=== PATIENT | female | born 1975 | race Caucasian/White ===

== ENCOUNTER → 2016-11-10 | Outpatient (CLI) | payer BC ==
[~2016-11-10] MED LIST: AUGMENTIN PO; BCPILLS PO; FLUT0.15 INTNAS; IRON PO; LEVO125T5 PO; MTR600X PO; NORE5TAB5 PO; OLOP1DRO OPB; OXYC-57 PO
== END | disposition home or self-care (01) ==
LOC: C.PAPS 14:13
PROVIDERS: ATTEND Obstetrics & Gynecology
DX: Z01.411 Encounter for gynecological examination (general) (routine) with abnormal findings (principal); R87.610 Atypical squamous cells of undetermined significance on cytologic smear of cervix (ASC-US)

== ENCOUNTER → 2017-06-18 | Outpatient (CLI) | payer BC ==
[~2017-06-18] MED LIST changes: -MTR600X PO; -OXYC-57 PO
== END | disposition home or self-care (01) ==
LOC: C.LAB1850 13:25
PROVIDERS: ATTEND Obstetrics & Gynecology
DX: N93.9 Abnormal uterine and vaginal bleeding, unspecified (principal)

== ENCOUNTER 2017-06-25 07:55 | Observation (INO) | payer BC ==
--- NOTE | 2017-06-22 08:50 | PAT Medication Instructions ---
Service Date Jun 22, 2017. Current Home Medication List Control Pills ( Control Pills), 1 TAB PO QPM Fluticasone Propionate (Nasal) (Flonase Allergy Relief), 2 SPRAYS INTNAS PRN Levothyroxine Sodium (Levothyroxine Sodium), 1 TAB PO QAM Norethindrone (Aygestin), 5 MG PO QPM Olopatadine HCl (Pazeo), 1 DROP OPB QAM [Augmentin], 1 TAB PO BID [Iron], 1 TAB PO QPM Medication Instructions For Your Scheduled Surgery - Hold the following medications 2 weeks prior to surgery: Control Pills ( Control Pills), 1 TAB PO QPM Norethindrone (Aygestin), 5 MG PO QPM - Continue as directed: [Augmentin], 1 TAB PO BID - Take the following medications the morning of surgery with a sip of water: Fluticasone Propionate (Nasal) (Flonase Allergy Relief), 2 SPRAYS INTNAS PRN ( if needed) Levothyroxine Sodium (Levothyroxine Sodium), 1 TAB PO QAM Olopatadine HCl (Pazeo), 1 DROP OPB QAM - Take the following medications as scheduled the night before surgery: Fluticasone Propionate (Nasal) (Flonase Allergy Relief), 2 SPRAYS INTNAS PRN ( if needed) [Iron], 1 TAB PO QPM If you have any questions please call us at [phone] or [phone] or [phone]
[2017-06-22 09:35] VITALS: BMI 22.0
[2017-06-22 09:58] LABS: BASO % 0.5 %; BASO ABS # 0.04 K/uL (0-0.2); COMPLETE YES; EOS % 2.6 %; IG% 0.3 %; LYMPH % 27.4 %; MEAN CELL VOLUME 95.6 fL (80-100); MEAN CORPUSCULAR HEMOGLOBIN 31.9 pg (25-34); MEAN CORPUSCULAR HGB CONC 33.3 g/dl (32-36); MEAN PLATELET VOLUME 9.2 fL (7.4-10.4); MONO % 8.4 %; NEUT % 60.8 %; PLATELET COUNT 324 K/uL (130-400); RED BLOOD COUNT 4.08 M/uL (4.2-5.4)
[2017-06-22 10:06] LABS: BUN/CREATININE RATIO 15.2 (10-20); CALCIUM 8.9 mg/dl (8.5-10.1); CREATININE 0.64 mg/dl (0.60-1.20); POTASSIUM 4.2 mmol/L (3.5-5.1)
[~2017-06-25] VITALS: Ht 167.6 cm; Wt 63.4 kg
[2017-06-25] VITALS (8 sets, daily range): BP systolic 105–121; BP diastolic 64–76; PULSE 64–77; TEMP 36.3–36.9; O2SAT 97–100; Ht 167.6 cm; Wt 63.4 kg
[~2017-06-25 07:55] MED LIST changes: +CEFAZOLIN 2000MG IV PUSH 10 ML IV SCH; +LACTATED RINGER'S 1000ML 1,000 ML IV SCH
[2017-06-25] MEDS ORDERED: EpHEDrine SULFATE INJ 50 MG/ML AMP IV PRN (08:45)
[2017-06-25] MEDS ORDERED: HYDROmorphone INJ 1 MG/ML SYR IV PRN (08:45)
[2017-06-25] MEDS ORDERED: FENTANYL CITRATE INJ 50 MCG/1 ML 2 ML VIAL IV PRN (08:45)
[2017-06-25] MEDS ORDERED: ATROPINE SULFATE 0.1 MG/ML 5ML SYR IV PRN (08:45)
[2017-06-25] MEDS ORDERED: ONDANSETRON INJ 2 MG/ML 2 ML VIAL IV PRN ×2 (08:45→12:45)
--- NOTE | 2017-06-25 09:48 | History & Physical Bridge Note ---
H&P Re-Evaluation Bridge Note: I have examined the patient, reviewed the History & Physical and in the interval since the performance of the History & Physical I have noted the following changes of clinical significance: No changes noted
[2017-06-25] MEDS ORDERED: BUPIVACAINE 0.5 % 5 MG/1 ML MPF 30ML VIAL ONE (09:57)
[2017-06-25] MEDS ORDERED: METHYLENE BLUE 0.5% 10 ML VIAL ONE (09:57)
[2017-06-25] MEDS ORDERED: DEXAMETHASONE SOD INJ 4 MG/ML VIAL ONE (10:02)
[2017-06-25] MEDS ORDERED: MIDAZOLAM HCL 1 MG/ML 2ML VIAL ONE (10:02)
[2017-06-25] MEDS ORDERED: PROPOFOL IV EMULSION 10 MG/ML 20 ML VIAL IV ONE (10:02)
[2017-06-25] MEDS ORDERED: SODIUM CHLORIDE 0.9% INJ 10 ML VIAL ONE (10:02)
[2017-06-25] MEDS ORDERED: GLYCOPYRROLATE INJ 0.2 MG/ML VIAL ONE ×2 (10:02→11:59)
[2017-06-25] MEDS ORDERED: FENTANYL CITRATE INJ 50 MCG/1 ML 2 ML VIAL ONE (10:02)
[2017-06-25] MEDS ORDERED: NEOSTIGMINE METHYLSULFATE 5 MG/5 ML SYR ONE (10:02)
[2017-06-25] MEDS ORDERED: LIDOCAINE HCL 2% 2 ML VIAL (20MG/ML) ONE (10:02)
[2017-06-25] MEDS ORDERED: ONDANSETRON INJ 2 MG/ML 2 ML VIAL ONE ×2 (10:02→11:59)
[2017-06-25] MEDS ORDERED: HYDROmorphone INJ 2 MG/ML SYR/VIAL ONE (10:02)
[2017-06-25] MEDS ORDERED: LARYING-O-JET KIT (LTA) ONE ×2 (10:02)
[2017-06-25] MEDS ORDERED: EpHEDrine SULFATE 50MG/5ML SYR ONE (10:49)
[2017-06-25] MEDS ORDERED: PHENYLEPHRINE 100MCG/ML 5ML SYR ONE (10:49)
[2017-06-25] MEDS ORDERED: KETOROLAC TROMETHAMINE 30 MG/ML VIAL ONE (12:25)
[2017-06-25] MEDS ORDERED: LACTATED RINGER'S 1000ML 1,000 ML IV SCH (12:37)
--- NOTE | 2017-06-25 12:39 | [facility] Post Operative Brief Note ---
Immediate Operative Summary Operative Date Jun 25, 2017. Pre-Operative Diagnosis Submucous Leimyoma of Uterus; Abnormal Uterine Bleeding; Menorrhagia Post-Operative Diagnosis same as preoperative Procedure(s) Performed Robot assisted Total Laparoscopic Hysterectomy, Cystoscopy Surgeon Dr. Manohar Rouse Bindery Technician Surgeon(s) Dr. Luz Gonzalez Estimated Blood Loss 20mL Findings enlarged uterus Specimens A. Uterus, Cervix, Bilateral Fallopian Tubes Drains Torrez Anesthesia General Complication(s) None Disposition Recovery Room / PACU
--- NOTE | 2017-06-25 12:40 | Discharge Instructions ---
Discharge Instructions Date of Service Jun 25, 2017. Admission Reason for Admission: Abnormal Uterine Bleeding, Submucous Leiomyoma Of Discharge Discharge Diagnosis / Problem: menorrhagia Discharge Goals Goal(s): Routine recovery after surgery Activity Recommendations Activity Limitations: per Instructions/Follow-up section . Instructions / Follow-Up Instructions / Follow-Up POST OPERATIVE: BOWEL FUNCTION/MEDICATIONS: 1. Constipation pain and discomfort are the most common complaints 5-7 days after surgery. Points 2-6 address the things that can help. 2. Chewing gum can help stimulate the gut and help improve digestion and motility. 3. Milk of Magnesia 1-2 times per day until return of bowel function. 4. Colace is a stool softener that helps. Taking this 2-3 times per day until bowel function returns to normal is highly recommended. 5. Dulcolax is a laxative that may be used if several days have passed without a bowel movement. Alternatively Miralax may be used daily instead. 6. Drink plenty of fluids as this will also reduce constipation. 7. Narcotic pain medications will be prescribed by your physician. They are safe to use and we encourage you to use them. If you are not allergic, ibuprofen will also be prescribed. Many patients will be able to transition off of the narcotic medications to ibuprofen by postoperative day 3. ACTIVITY RECOMMENDATIONS: 1. Get plenty of rest and listen to your body. If you are tired, take a nap. 2. You may shower, but do not take a tub bath until you see your doctor at the 2 week post operative visit. 3. Absolutely NO intercourse and nothing in the vagina until you are examined by your doctor at the 6 week visit. At that visit it will be determined when such activities can be resumed. This can range from 6-12 weeks after your surgery depending on healing time. 4. The main physical activity in the first week should be walking. By the second week you can slowly increase activity. There are no limits on walking up and down stairs. 5. Do not lift more than 5-10 lbs for 4 weeks. Remember the "one-handed rule", i.e. if you can lift something with only one hand it's likely okay. 6. Minimize auxiliary equipment operator like vacuuming and exercising for 4 weeks. "Overdoing it" can lead to incisions not healing, pain and vaginal bleeding , so again, listen to your body. 7. Driving can be resumed when you feel able. Do not drive within 24 hours of taking a narcotic medication. EXPECTATIONS: 1. Vaginal spotting, bleeding and discharge are common after surgery. There may even be an odor to the discharge which is often related to sutures used in the vagina. If you experience heavy vaginal bleeding, call the office number day or night [phone]. 2. Bladder discomfort is common after surgery from the catheter. This usually resolves in 1-2 weeks. 3. By the end of the 3rd or 4th week you should be feeling much better. It may take up to 6 weeks for your energy levels to return to normal. 4. Narcotic medications have side effects such as: dizziness, headache, nausea and/or vomiting. If you suspect your pain medication is causing problems, call our office and we may be able to prescribe an alternate medication. 5. The skin incisions are often covered with a liquid bandage. This will gradually peel off over time. CALL THE OFFICE IF YOU HAVE ANY OF THE FOLLOWIN. Temperature of 101 degrees or higher. 2. Severe abdominal or pelvic pain not relieved by pain medication. 3. Persistent nausea or vomiting. 4. Increased pain with urination or difficulty urinating. 5. Bright red bleeding that soaks more than 1 pad per hour. CONTACT PHONE NUMBERS: Main Office: [phone] Surgical Nurse: [phone] extension [phone] Avoid all tobacco products. If you need help to stop smoking, call [place]'s FREE QUITLINE at . This is a free call. Current Hospital Diet Patient's current hospital diet: Discharge Diet Recommended Diet: Regular Diet Procedures Procedures Performed: Robot assisted Total Laparoscopic Hysterectomy, Cystoscopy Pending Studies Studies pending at discharge: no Medical Emergencies . Who to Call and When: Medical Emergencies: If at any time you feel your situation is an emergency, please call 911 immediately. . Non-Emergent Contact Non-Emergency issues call your: Group Account Director . . "Provider Documentation" section prepared by Schuyler Rouse. . VTE Core Measure Inpt VTE Proph given/why not?: Darwin Siddiqui, MEY's
[2017-06-25] MEDS ORDERED: MTR600X PO (12:41)
[2017-06-25] MEDS ORDERED: OXYC-57 PO (12:41)
[2017-06-25] MEDS ORDERED: ZOLPIDEM TARTRATE 5 MG TAB PO PRN (12:45)
[2017-06-25] MEDS ORDERED: OXYCODONE/ACETAMINOPHEN 5-325 TAB PO PRN ×2 (12:45)
[2017-06-25] MEDS ORDERED: IBUPROFEN 600 MG TAB PO PRN (12:45)
[2017-06-25] MEDS ORDERED: MEPERIDINE HCL 50 MG/ML CARP IV PRN ×2 (12:45)
[2017-06-25] MEDS ORDERED: PROMETHAZINE HCL INJ 25 MG in SODIUM CHLORIDE 0.9% 50ML 50 ML IV PRN (12:45)
[2017-06-25] MEDS ORDERED: KETOROLAC TROMETHAMINE 30 MG/ML VIAL IV. PRN (12:45)
[2017-06-25] MEDS ORDERED: SIMETHICONE 80 MG CHEW PO PRN (12:45)
[2017-06-25] MEDS ORDERED: BISACODYL 10 MG SUPP PR PRN (12:45)
[2017-06-25] MEDS ORDERED: ACETAMINOPHEN 325 MG TAB PO PRN (12:45)
[2017-06-25] MEDS ORDERED: MAGNESIUM HYDROXIDE SUSP 30 ML UDC PO PRN (12:45)
[2017-06-25] MEDS ORDERED: PROMETHAZINE HCL INJ 12.5 MG in SODIUM CHLORIDE 0.9% 50ML 50 ML IV PRN (12:45)
--- NOTE | 2017-06-25 13:21 | OPERATIVE REPORT ---
DATE OF OPERATION: 06/25/2017 PREOPERATIVE DIAGNOSES: Submucosal leiomyoma of the uterus, abnormal uterine bleeding, menorrhagia. POSTOPERATIVE DIAGNOSES: Same. PROCEDURE: Robotically assisted total laparoscopic hysterectomy, bilateral salpingectomy, and cystoscopy. SURGEON: Dr. Rouse. BUSINESS OPERATIONS MANAGER: Konrad Callaway. ESTIMATED BLOOD LOSS: 20 mL. FINDINGS: Enlarged uterus. SPECIMENS: Uterus, cervix, bilateral fallopian tubes. DRAINS: Torrez catheter. COMPLICATIONS: None. DISPOSITION: Recovery room. DESCRIPTION OF PROCEDURE: The patient was sent to the operating room. IV antibiotics given, given a general anesthetic, prepped and draped in dorsal lithotomy position in [facility]. Torrez catheter used to drain her bladder. It should be noted that her urethral opening was narrowed and required a 12 Torrez to actually enter the urethra and drain the bladder. Uterus was examined and found to be significantly enlarged, somewhat retroverted. Weighted speculum placed in the vagina and then we were able to place the Dichiara and sewn in place the usual fashion. Gloves changed and a supraumbilical incision made with scalpel. Using open Lauryn technique, we did a cut down through the subcutaneous fat through the fascia in the midline, splitting the rectus muscles and entering the peritoneal cavity. Blunt-tipped Lauryn trocar then placed. Balloon inflated to stabilize the port, CO2 gas used to insufflate the abdomen. FINDINGS: Upper abdomen normal. There was an adhesion of the omentum on the anterior abdominal wall. Both ovaries appeared to be normal as to the tubes. Uterus was somewhat larger than expected and globular in its enlargement, this is possible adenomyosis. The Exploretrip-THERAVECTYS was able to manipulate, but had some limited success manipulating this, I decided on a third robotic port. Arm #1 was monopolar dmitri, arm #2 was bipolar [place], arm #3 was ProGrasp; these ports were all placed under direct visualization. Left upper quadrant accessory port bladeless 11. Robot was then docked. The procedure was begun by identifying the ureter, first on the left side and then we removed the fallopian tube in the usual fashion, coagulated the ovary, surveying the uteroovarian blood supply distal to the ovary in the left side. We were well away from the left ureter and then transected this with monopolar dmtiri, same process with the round ligament. We then skeletonized the uterine arteries, sharply dissected away the bladder flap and identified the uterine vessels on the left side. These were then coagulated with the bipolar [place] and then cut. We were well away from the left ureter. The exact same process was continued on the right. Note that a thin omental adhesion on the anterior abdomen was also lysed down with the monopolar dmitri. Once the bladder flap was fully dissected away and both uterine vessels were coagulated and transected, we made an anterior colpotomy with the monopolar dmitri and then continued the colpotomy until completion to the point where I was able to separate the cervix from the vagina. Uterus was then pulled into the vagina and then removed. Now both fallopian tubes had been removed through the accessory port. At this stage, IV methylene blue was given, a sponge and a glove was then placed into the vagina as well to maintain pneumoperitoneum. We performed instrument exchange arm #1 became the edil needle substitute bus driver, arm #2 became the cobra. Using a 12 inch 2-0, 90-day V-Loc suture, we then closed the cuff from left to right back right to left ensuring good at least 1 cm thickness bites of vaginal mucosa. Suture was cut so there was no tail and needle removed through the accessory port. After generous irrigation and suction, hemostasis was excellent. We did then perform cystoscopy. Note, we had to use the pediatric cystoscope due to her narrow urethra, was able to visualize good jets of bluish green dye from both the left and right ureter openings. No sign of sutures or damage to the bladder were noted. Cystoscope removed and another 12 Torrez catheter was placed in and this was a new catheter and urine drained well. There was no vaginal bleeding. Sponge and the glove had been removed as well. At this stage, we then using robotic assistance applied Tisseel 4 mL to the pedicles the uterine ovarian levels and hemostasis was excellent. Instruments were removed under direct visualization. Ports removed, gas allowed to escape. Incisions injected with 0.5% Marcaine. Fascia closed carefully with figure of eight 0 Vicryl sutures in the umbilicus and the left upper quadrant incision, 4-0 subcuticular Monocryl closures. No Dermabond was used. Incisions bandaged with paper tape and 4 x 4's. Sponge and instrument counts correct at the end of the procedure. I attest to the content of the Intraoperative Record and any orders documented therein. Any exception s are noted below.
--- NOTE | 2017-06-25 13:42 | Anesthesiology Progress Note ---
Anesthesia Post Op Note Date & Time Jun 25, 2017 at 13:41 Vital Signs Pain Intensity: 0 Vital Signs Past 12 Hours Date Time Temp Pulse Resp B/P (MAP) Pulse Ox O2 Delivery O2 Flow Rate FiO2 06/25/17 13:25 36.8 63 16 108/70 96 Room Air 06/25/17 13:15 79 16 111/69 97 Room Air 06/25/17 13:05 68 16 110/65 96 Room Air 06/25/17 12:55 70 16 109/69 99 Oxymask 10 06/25/17 12:49 37.1 87 16 124/68 99 Oxymask 10 06/25/17 08:52 36.9 77 16 113/76 (88) 100 Room Air Notes Mental Status: alert / awake / arousable, participated in evaluation Pt Amnestic to Procedure: Yes Nausea / Vomiting: adequately controlled Pain: adequately controlled Airway Patency, RR, SpO2: stable & adequate BP & HR: stable & adequate Hydration State: stable & adequate Anesthetic Complications: no major complications apparent
[2017-06-25] MEDS ORDERED: ROCURONIUM BROMIDE 10 MG/ML 5 ML VIAL IV ONE (13:52)
[2017-06-25] MEDS ORDERED: IV FLUIDS COMPLETED PRN (17:00)
[2017-06-25] MEDS ORDERED: DOCUSATE SODIUM 100 MG CAP PO SCH (21:00)
--- NOTE | 2017-06-26 08:20 | DISCHARGE SUMMARY ---
Joan had a total laparoscopic hysterectomy on 06/25/2017. The procedure was uncomplicated. Operative note has been dictated. Her course in hospital was uncomplicated and she was discharged a few hours after her surgery. At that time she was ambulating well, tolerating an oral diet, was able to void on her own and had no vaginal bleeding or extremity pain. PHYSICAL EXAMINATION: VITAL SIGNS: Stable. She was afebrile. IMPRESSION AND PLAN: Hysterectomy, discharged on the same day. She will follow up in the office. Discharge instructions reviewed with the patient.
== END 2017-06-25 19:30 | disposition home or self-care (01) ==
LOC: C.ACU 07:55 → C.MS4N 08:50 → ENRESERV 13:03
PROVIDERS: ADMIT Obstetrics & Gynecology; ATTEND Obstetrics & Gynecology
DX: D25.0 Submucous leiomyoma of uterus (principal); N72 Inflammatory disease of cervix uteri; N93.8 Other specified abnormal uterine and vaginal bleeding

== ENCOUNTER → 2017-07-18 | Outpatient (CLI) | payer BC ==
[~2017-07-18] MED LIST changes: -BCPILLS PO; -CEFAZOLIN 2000MG IV PUSH 10 ML IV SCH; -LACTATED RINGER'S 1000ML 1,000 ML IV SCH; +MTR600X PO; -NORE5TAB5 PO; +OXYC-57 PO
--- NOTE | 2017-07-18 16:02 | MAMMOGRAPHY REPORT ---
BILATERAL DIGITAL DIAGNOSTIC MAMMOGRAM TOMOSYNTHESIS WITH CAD AND TARGETED BILATERAL ULTRASOUND: 07/06 CLINICAL HISTORY: 42-year-old woman presents for annual bilateral mammograms and also follow-up bilat [facility] breast ultrasound for benign-appearing solid and solid versus cystic masses. TECHNIQUE: Bilateral breast tomosynthesis in addition to standard 2D mammography was performed. Curre nt study was also evaluated with a Computer Aided Detection (CAD) system. COMPARISON: Comparison is made to exams dated: 07/11/2016 ultrasound, 07/11/2016 mammogram, 01/10/2016 u [facility], 07/08/2015 mammogram, 07/08/2015 ultrasound, and 06/09/2014 ul trasound. BREAST COMPOSITION: The tissue of both breasts is heterogeneously dense, which may obscure small mas ses. FINDINGS: The glandular pattern is similar to prior mammograms. Partially circumscribed masses are i dentified and each breast, with the circumscribed borders best identified on the tomosynthesis images . In particular in the subareolar right breast on the CC tomosynthesis images (slice 14) is a 9 x 11 mm. A second oval circumscribed mass is identified in the medial posterior right breast on CC tomos ynthesis slice 24, measuring 5 x 11 mm. No other obvious new mass, focal area of architectural disto rtion or suspicious calcifications are identified in the right breast. No definite suspicious masses, calcifications, asymmetries or areas of distortion are identified in t he left breast. It should be noted that the mass identified in the 10:00 periareolar left breast on ultrasound is not well seen mammographically. Targeted ultrasound was performed in both breasts. In the 10:00 periareolar left breast, there is an oval parallel circumscribed hypoechoic solid mass measuring 9.5 x 5.2 x 9.3 mm. In the right 12:00 breast periareolar region, there is an oval parallel circumscribed hypoechoic colt d mass measuring 3.7 x 2.3 x 3.8 mm, and an adjacent anechoic oval parallel benign cyst measuring 4 m m. In the right retroareolar breast there is a lobulated and circumscribed parallel hypoechoic solid mass measuring 9.9 x 5.3 x 11.4 mm. In the 2:00 right breast, 4 cm from the nipple another oval par allel circumscribed hypoechoic solid mass measures 8.4 x 3.6 x 8.2 mm. In the 2:00 right breast, 1 c m from the nipple, there is a circumscribed hypoechoic solid versus cystic mass with faint posterior acoustic enhancement measuring 3.0 x 2.1 x 3.1 mm, and a benign anechoic simple cyst with posterior a coustic enhancement in the 4:00 right breast, 1 cm from the nipple measuring 3.5 x 2.3 x 2.9 mm. The solid appearing masses in the 2:00 and 9:00 retroareolar right breast are stable dating back to a t least 06/09/2014 and with 3 years of stability are considered benign. The solid mass in the 10:00 periareolar left breast is stable dating back to at least 07/08/2015 and with 2 years of stability is considered benign. The circumscribed hypoechoic benign-appearing mass in the 12:00 right breast is stable dating back to 07/11/2016 and most likely benign. The hypoechoic mass in the 2:00 right breas t, 1 cm from the nipple has decreased in size, confirming benignity and the mass in the 4:00 right br east represents an anechoic benign simple cyst. Therefore, the only sonographic follow-up is needed at this time would be repeat targeted ultrasound in the 12:00 periareolar right breast to ensure stab ility of the small circumscribed benign-appearing isoechoic to hypoechoic mass. IMPRESSION: ACR-BI-RADS CATEGORY 3: PROBABLY BENIGN, TARGETED ULTRASOUND ACR-BI-RADS CATEGORY 3: PRO BABLY BENIGN 1. Stable bilateral mammograms including a partially circumscribed masses in the right breast, best visualized on the tomosynthesis images. No new suspicious distortions, masses or calcifications are seen bilaterally. 2. There are stable benign-appearing solid and solid versus cystic masses in both breasts, particula rly within the 10:00 periareolar left breast, 9:00 retroareolar right breast and 2:00 right breast. Stability has been documented with ultrasound for 2 years or greater regarding these masses and no fu rther close follow-up is needed at this time. 3. There is an indeterminate benign-appearing circumscribed parallel isoechoic 4 mm mass in the 12:0 0 periareolar right breast, that is unchanged comparing to a prior ultrasound performed 07/11/2016. Another 12 month follow-up targeted ultrasound is recommended to ensure at least 2 years of stability to confirm benignity. These results and recommendations were discussed with the patient at the time of the exam. She repor ts she is moving to [place] and we will provide a CD with all of the mammogram, tomosynthesis on ultrasound images for follow-up purposes. Approximately 10% of breast cancers are not detected with mammography. A negative mammographic report should not delay biopsy if a clinically suggestive mass is present. Marcela Desouza M.D. ay/:07/18/2017 14:57:28 Housekeeping Aide: Fatoumata ANGULO(Unruly)(Luis M), [facility] letter sent: Follow Up Recommended 3 BI-RADS Code: ACR-BI-RADS Category 3: Probably Benign Ultrasound BI-RADS: ACR-BI-RADS Category 3: Pr obably Benign
== END | disposition home or self-care (01) ==
LOC: C.MAMM 12:35
PROVIDERS: ATTEND Obstetrics & Gynecology
DX: N63.10 Unspecified lump in the right breast, unspecified quadrant (principal); N63.20 Unspecified lump in the left breast, unspecified quadrant